=== PATIENT | female | born 1950 | race Caucasian/White ===

== ENCOUNTER 2024-06-07 11:59 | Emergency (ER) | payer MEDICARE, OTHER, SELFPAY ==
[2024-06-07] VITALS (9 sets, daily range): BP systolic 123–138; BP diastolic 58–89; PULSE 56–64; RESP 16–24; TEMP 36.2; O2SAT 94–97; BMI 32.5
--- NOTE | 2024-06-07 12:04 | DI.RAD.S_ITS ---
PROCEDURE: XR CHEST 1V INDICATIONS: chest pain TECHNIQUE: One view of the chest was acquired. COMPARISON: None. FINDINGS: Surgical changes and devices: None. Lungs and pleura: Lungs are clear. No pleural effusions or pneumothorax. Mediastinum: Mediastinal contours appear normal. Heart size is normal. Bones and chest wall: No suspicious bony lesions. Overlying soft tissues appear unremarkable. IMPRESSION: No acute cardiopulmonary pathology. Dictated by: Byron Rodrigues M.D. on 06/07/2024 at 13:10 Approved by: Byron Rodrigues M.D. on 06/07/2024 at 13:11
--- NOTE | 2024-06-07 12:15 | EKG_ITS ---
[address] [address] Test Date: 2024-06-07 Pat Name: Elizabeth Loepz Department: [facility] Room: Gender: Female [employer] Machine Operator: JUAN CARLOS : 1950 Requested By: Order Number: [id number] Reading MD: Jose L Swann Measurements Intervals [place] Rate: 59 P: 14 MD: 190 QRS: 6 QRSD: 84 T: 23 QT: 422 QTc: 417 Interpretive Statements Sinus bradycardia Electronically Signed On 06-09-2024 18:26:20 PDT by Jose L Swann
[2024-06-07 12:43] LABS: Add Manual Diff / Slide Review NO; Basophils Absolute Auto 0 /uL (0-100); Basophils Percent Auto 0.9 % (0-2); Eosinophils Absolute Auto 200 /uL (0-450); Eosinophils Percent Auto 4.5 % (2-4); Hematocrit 38.8 % (36-46); Hemoglobin 13.1 g/dL (12.0-16.0); Lymphocytes Absolute Auto 2100 /uL (1100-4500); Lymphocytes Percent Auto 41.4 % (25-40); Mean Corpuscular HGB Conc 33.6 % (30-36); Mean Corpuscular Hemoglobin 30.2 PG (26-34); Mean Corpuscular Volume 89.8 fL (80-100); Monocytes Absolute Auto 400 /uL (0-900); Monocytes Percent Auto 8.3 % (3-14); Neutrophils Absolute Auto 2300 /uL (1500-7000); Neutrophils Percent Auto 44.9 % (50-75); Platelet Count 149 X10^3/uL (150-400); Red Blood Cell Count 4.32 X10^6/uL (4.0-5.2); White Blood Cell Count 5.1 X10^3/uL (4.5-11.0)
[2024-06-07 12:48] LABS: INR 0.9 (0.9-1.3); Prothrombin Time 10.4 SECONDS (9.4-12.5)
[2024-06-07 12:51] LABS: PTT Partial Thromboplastin Tim 37 SECONDS (25.1-36.5)
[2024-06-07 12:53] LABS: Alanine Aminotransferase 44 IU/L (<35); Albumin 3.9 g/dL (3.5-5.0); Albumin Globulin Ratio 1.6 (1.0-2.8); Alkaline Phosphatase 76 U/L (38-126); Aspartate Aminotransferase 50 IU/L (14-36); BUN Creatinine Ratio 14.3 (6-22); Bilirubin Total 0.5 mg/dL (0.2-1.3); Blood Urea Nitrogen 11 mg/dL (7-17); Calcium 8.9 mg/dL (8.4-10.2); Carbon Dioxide 25 mmol/L (22-32); Chloride 108 mmol/L (98-107); Creatine Kinase 87 U/L (30-135); Estimated Glomerular Filt Rate > 60 mL/min (>60); Globulin 2.4 g/dL (1.7-4.1); Glucose 110 mg/dL (80-110); HEMOLYSIS 18 (0-50); Lipase 54 U/L (23-300); Magnesium 2.2 mg/dL (1.6-2.3); Potassium 4.3 mmol/L (3.4-5.1); Sodium 138 mmol/L (137-145); Total Protein 6.3 g/dL (6.3-8.2)
[2024-06-07 13:04] LABS: NT-proBNP (BNP-Adult 18+) 36 pg/mL (<450); Troponin I < 0.012 ng/mL (0.01-0.034)
--- NOTE | 2024-06-07 14:23 | ED_ITS ---
HPI - Chest Pain General Chief Complaint: Chest Pain Stated Complaint: palpitations, hx of heart attack Time Seen by Provider: 06/07/24 14:19 Source: patient, RN notes reviewed and old records reviewed Mode of arrival: Ambulatory Limitations: no limitations History of Present Illness HPI narrative: 73-year-old female history of coronary artery disease with prior stent, hypertension dyslipidemia, restless leg on aspirin daily who presents with complaint of sensation of palpitations overnight at 3:00 a.m.. Patient states this made her feel anxious as last time she would palpitations following day she had chest pain and then had a cardiac stent placed after having a myocardial infarction. Patient states she has not having any chest pain similar to that. She states she does hurt everywhere from her head to her toes, she hurts in her chest but when she coughs or sneezes or moves. She states it feels very different than her prior heart attack. Patient states she is moving and has been packing and packing a lot of objects making her very sore. She states she probably feels short of breath, she denies any diaphoresis no cold cough or congestion she has noted a little bit of phlegm. No fevers or chills. No nausea or vomiting. No swelling in her extremities. Patient states has not had any additional palpitations. She is on lisinopril, statin, allopurinol aspirin daily as well as Tylenol PRN for discomfort. She has had prior cardiac stent and tonsillectomy. No known drug allergies. No tobacco, alcohol or recreational drugs. She is recently moved to the area she is follow up next month with [facility] but is interested in establishing with a more local group. She has a primary care appointment on the to establish locally. She is accompanied by her family. Related Data Allergies Allergy/AdvReac Type Severity Reaction Status Date / Time No Known Drug Allergies Allergy Verified 06/07/24 13:23 Review of Systems Review of Systems ROS Unobtainable: All systems reviewed & are unremarkable except as noted in HPI and below Exam Narrative Exam Narrative: GENERAL: Alert and oriented x three, elderly female in mild distress HEENT: Head normocephalic, atraumatic, EOMI, pupils reactive, face symmetric, moist mucous membranes NECK: Supple, full range of motion CARDIOVASCULAR: Regular rate and rhythm without murmurs, rubs or gallops. No JVD. No edema. Reproducible chest pain with palpation. RESPIRATORY: Breath sounds equal bilaterally, no wheezes rales or rhonchi. ABDOMEN: Soft, nontender. Normoactive bowel sounds all 4 quadrants. No guarding or rebound, rigidity, no mass : No CVA tenderness EXTREMITIES: Normal range of motion, no clubbing or edema. Neurovascularly intact NEUROLOGICAL: Cranial nerves II through XII grossly intact. Moving all extremities SKIN: Warm, dry, no petechiae, no rashes or lesions. Initial Vital Signs Initial Vital Signs: Vital Signs Temperature 97.1 F L 06/07/24 12:04 Pulse Rate 64 06/07/24 12:04 Respiratory Rate 16 06/07/24 12:04 Blood Pressure 131/89 06/07/24 12:04 Pulse Oximetry 97 06/07/24 12:04 Oxygen Delivery Method Room Air 06/07/24 12:04 Course Orders Ordered: ED Orders 06/07/24 12:04 XR chest 1V Stat EKG-12 Lead Stat 06/07/24 12:27 Complete Blood Count AUTO DIFF Stat Comprehensive Metabolic Panel Stat Lipase Stat Magnesium Stat NT-proBNP (BNP-Adult 18+) Stat PTT Partial Thromboplastin Jose Stat Prothrombin Time INR Stat Troponin & CK Cardiac Panel Stat Discontinued Medications Aspirin (Aspirin 81 Mg Chew Tab) 324 mg PO NOW ONE Stop: 06/07/24 12:05 Last Admin: 06/07/24 13:23 Dose: Not Given Documented By: AMV Vital Signs Vital signs: Vital Signs - 8 hr 06/07/24 12:04 06/07/24 12:13 06/07/24 12:13 Temperature 97.1 F L Pulse Rate 64 62 Respiratory Rate 16 Blood Pressure 131/89 137/63 Pulse Oximetry 97 95 Oxygen Delivery Method Room Air 06/07/24 12:30 06/07/24 13:00 06/07/24 13:00 Temperature Pulse Rate 60 56 L Respiratory Rate 20 Blood Pressure 126/58 L Pulse Oximetry 96 95 Oxygen Delivery Method 06/07/24 13:30 06/07/24 13:30 06/07/24 14:00 Temperature Pulse Rate 57 L 58 L Respiratory Rate 24 Blood Pressure 123/58 L Pulse Oximetry 96 96 Oxygen Delivery Method 06/07/24 14:00 06/07/24 14:30 06/07/24 14:30 Temperature Pulse Rate 58 L Respiratory Rate Blood Pressure 138/60 124/73 Pulse Oximetry 94 Oxygen Delivery Method Room Air 06/07/24 15:00 06/07/24 15:01 06/07/24 15:01 Temperature Pulse Rate 56 L 61 Respiratory Rate Blood Pressure 131/73 Pulse Oximetry 96 96 Oxygen Delivery Method MDM - Chest Pain Lab Data 06/07/24 12:27 06/07/24 12:27 Labs: Lab Results 06/07/24 Range/Units 12:27 WBC 5.1 (4.5-11.0) X10^3/uL RBC 4.32 (4.0-5.2) X10^6/uL Hgb 13.1 (12.0-16.0) g/dL Hct 38.8 (36-46) % MCV 89.8 (80-100) fL MCH 30.2 (26-34) PG MCHC 33.6 (30-36) % RDW 13.0 (11.6-14.8) % Plt Count 149 L (150-400) X10^3/uL Neut % (Auto) 44.9 L (50-75) % Lymph % (Auto) 41.4 H (25-40) % [place] % (Auto) 8.3 (3-14) % Eos % (Auto) 4.5 H (2-4) % Baso % (Auto) 0.9 (0-2) % Neut # (Auto) 2300 (5874-5071) /uL Lymph # (Auto) 2100 (8288-0071) /uL [place] # (Auto) 400 (0-900) /uL Eos # (Auto) 200 (0-450) /uL Baso # (Auto) 0 (0-100) /uL PT 10.4 (9.4-12.5) SECONDS INR 0.9 (0.9-1.3) APTT 37 H (25.1-36.5) SECONDS Sodium 138 (137-145) mmol/L Potassium 4.3 (3.4-5.1) mmol/L Chloride 108 H (98-107) mmol/L Carbon Dioxide 25 (22-32) mmol/L BUN 11 (7-17) mg/dL Creatinine 0.77 (0.52-1.04) mg/dL Estimated GFR > 60 (>60) mL/min BUN/Creatinine Ratio 14.3 (6-22) Glucose 110 (80-110) mg/dL Calcium 8.9 (8.4-10.2) mg/dL Magnesium 2.2 (1.6-2.3) mg/dL Total Bilirubin 0.5 (0.2-1.3) mg/dL AST 50 H (14-36) IU/L ALT 44 H (<35) IU/L Alkaline Phosphatase 76 (38-126) U/L Total Creatine Kinase 87 (30-135) U/L Troponin I < 0.012 (0.01-0.034) ng/mL NT-Pro-B Natriuret Pep 36 (<450) pg/mL Total Protein 6.3 (6.3-8.2) g/dL Albumin 3.9 (3.5-5.0) g/dL Globulin 2.4 (1.7-4.1) g/dL Albumin/Globulin Ratio 1.6 (1.0-2.8) Lipase 54 (23-300) U/L ECG Data Attestation: I personally reviewed and interpreted this ECG as follows: Prior ECG tracings: not available for review Interpretation: Sinus bradycardia rate of 59 HI 190 QRS 84 QTC of [address] changes appreciated patient has no priors for comparison. MDM Narrative Medical decision making narrative: 73-year-old female with history of coronary artery disease who presents with a complaint of palpitations early this morning no additional episodes she has been sinus bradycardic but no acute rhythm changes otherwise. She felt anxious his last time she had significant chest pain the following day and then ultimately had an [facility] and a cardiac stent. She has not had chest pain today other than discomfort with movement that she has throughout her body while she has been moving for the past week. Patient and I discussed repeating 2nd troponin but she defers and her symptoms seem very much musculoskeletal today although her palpitations may has been an arrhythmia. She has follow up in place with her product inspection coordinator. Show white count of 5.1 hemoglobin of 13 platelets of 149 no priors for comparison predominance of lymphocytes. INR 0.9 chloride 108 sodium is 138 potassium 4.3 creatinine 0.77 with a BUN 11 CO2 of 25, AST is 50 ALT is 44 LFTs are otherwise negative troponins less than 0.012 with a BNP of 36. Chest x-ray shows no acute change EKG shows sinus bradycardia, no acute ST elevation appreciated. No priors for comparison. Discharge Plan Departure Patient Disposition: Home Clinical Impression: Palpitations Instructions: DI for Palpitations Activity Restrictions/Additional Instructions: Follow up with your product inspection coordinator. Contacts included below so you can establish with a more local product inspection coordinator. To let them know that he had a sensation of palpitations if this is recurrent they may wish to order a Holter monitor or ZIO patch for further monitoring. Continue your home medications as prescribed. Please return for new or worsening chest pain, shortness of breath, lightheadedness or passing out, persistent palpitations or irregular heartbeat, new swelling of extremities, diaphoresis or sweatiness or nausea or vomiting or other new or concerning changes. Referrals: Uday Torres MD [Physician] - Kirill Steel MD [Physician] - Stand Alone Forms: Patient Portal/API
== END 2024-06-07 15:15 | disposition home or self-care (01) ==
PROVIDERS: Emergency Provider Emergency Medicine
DX: R00.2 Palpitations (principal); R00.1 Bradycardia, unspecified; I25.2 Old myocardial infarction; Z95.5 Presence of coronary angioplasty implant and graft
CPT/HCPCS: 36415; 71045; 80053; 82550; 83690; 83735; 83880; 84484; 85025; 85610; 85730; 93005; 99283; 99284

== ENCOUNTER → 2024-06-25 14:07 | Outpatient (CLI) | payer MEDICARE, OTHER, SELFPAY ==
--- NOTE | 2024-06-25 14:09 | DI.RAD.S_ITS ---
PROCEDURE: XR LUMBAR SPINE 2-3V INDICATIONS: eval back fractures TECHNIQUE: 3 views of the lumbar spine were acquired. COMPARISON: [facility], CR, XR CHEST 1V, 06/07/2024, 12:25. [facility], CR, XR THORACIC SPINE 3V, 06/25/2024, 14:12. FINDINGS: Bones: 5 [id number] vertebrae are present. There is normal bony alignment mild compression fracture at the T12 level of indeterminate age. No retropulsed fracture fragments. Multilevel disc degeneration and lower lumbar spine facet joint arthropathy. Bones are osteopenic.. No suspicious bony lesions. Soft tissues: Overlying bowel gas pattern is normal. No suspicious soft tissue calcifications. Vascular calcifications indicate atherosclerosis. IMPRESSION: 1. T12 compression fracture of indeterminate age. If acute fracture is suspected, MRI could be performed for further assessment. 2. Multilevel lumbar spine spondylosis. Dictated by: Theron Marsh RRA Interpreted: Radha Watson MD on 06/26/2024 at 18:56 Transcribed by: GABRIELA on 06/26/2024 at 18:57 Approved by: Radha Watson M.D. on 06/27/2024 at 16:44
--- NOTE | 2024-06-25 14:09 | DI.RAD.S_ITS ---
PROCEDURE: XR THORACIC SPINE 3V INDICATIONS: eval back fractures TECHNIQUE: 3 views of the thoracic spine were acquired. COMPARISON: [facility], CR, XR LUMBAR SPINE 2-3V, 06/25/2024, 14:12. FINDINGS: Bones: Mild T12 compression fracture of indeterminate age. Mild multilevel disc degeneration. No suspicious bony lesions. 12 pairs of ribs are noted, and appear intact where visualized. Soft tissues: No paravertebral stripe thickening. IMPRESSION: Mild T12 compression fracture of indeterminate age. If acute fracture is suspected, MRI could be performed. Dictated by: Theron Marsh [facility] Interpreted: Radha Watson MD on 06/26/2024 at 18:58 Transcribed by: GABRIELA on 06/26/2024 at 18:59 Approved by: Radha Watson M.D. on 06/27/2024 at 16:45
== END ==
PROVIDERS: PCP Family Medicine; Referring Provider Family Medicine; Visit Provider Family Medicine
DX: S22.080A Wedge compression fracture of T11-T12 vertebra, initial encounter for closed fracture (principal); S32.020A Wedge compression fracture of second lumbar vertebra, initial encounter for closed fracture; M47.816 Spondylosis without myelopathy or radiculopathy, lumbar region; M51.34 Other intervertebral disc degeneration, thoracic region; M54.9 Dorsalgia, unspecified
CPT/HCPCS: 72072; 72100

== ENCOUNTER → 2024-07-10 15:03 | Outpatient (CLI) | payer MEDICARE, OTHER, SELFPAY ==
--- NOTE | 2024-07-10 | DI.MRI.S_ITS ---
PROCEDURE: MR LUMBAR SPINE WO CON INDICATIONS: LUMBAR STENOSIS TECHNIQUE: Noncontrast sagittal T1 spin echo and T2 fast echo, sagittal STIR, and T2 fast spin echo through the lumbar spine. In cases with scoliosis, additional coronal T2 fast spin echo may be performed. COMPARISON: None. FINDINGS: Image quality: Excellent. Alignment and Curvature: Mild retrolisthesis of L1 on L2 and L2 on L3. Grade 1 anterolisthesis of L4 on L5. Bone Marrow: Degenerative endplate changes, most pronounced at L2-L3. Marrow is of normal overall signal. No acute vertebral body compression fractures. Mild chronic anterior wedging of T11. Spinal Cord: Conus medullaris terminates at the L1 level. Visualized cord demonstrates normal signal and size. Paraspinous Soft Tissues: No paravertebral masses. T12-L1: Disc desiccation and small disc bulge. Facet arthropathy. No significant central canal or neural foraminal stenosis. L1-L2: Disc desiccation and mild height loss. Posterior disc bulge. Facet arthropathy and thickening of ligamentum flavum. Mild to moderate central canal stenosis. Mild bilateral neural foraminal stenosis. L2-L3: Disc desiccation and moderate disc height loss. Facet arthropathy and thickening of ligamentum flavum. Epidural lipomatosis. Moderate central canal stenosis. Moderate left and mild right neural foraminal stenosis. L3-L4: Disc desiccation and mild height loss. Diffuse disc bulge. Facet arthropathy and thickening of ligamentum flavum. Mild to moderate central canal stenosis. Mild bilateral neural foraminal stenosis. L4-L5: Disc desiccation and mild height loss. Diffuse disc bulge. Facet arthropathy and thickening of ligamentum flavum. Moderate to severe central canal stenosis. [id number] bilateral neural foraminal stenosis. L5-S1: Disc desiccation and moderate height loss. Mild disc bulge. Facet arthropathy. No significant central canal stenosis. Severe left and moderate right neural foraminal stenosis. IMPRESSION: 1. Multilevel degenerative changes of the lumbar spine as described above. 2. Moderate to severe central canal stenosis at L4-5. 3. Severe left neural foraminal stenosis at L5-S1. Additional multilevel neural foraminal stenosis as above. Dictated by: Boo Alcantar M.D. on 07/10/2024 at 17:28 Approved by: Boo Alcantar M.D. on 07/10/2024 at 17:38
== END ==
PROVIDERS: PCP Family Medicine; Referring Provider Orthopaedic Surgery Orthopaedic Surgery of the Spine; Visit Provider Orthopaedic Surgery Orthopaedic Surgery of the Spine
DX: M48.062 Spinal stenosis, lumbar region with neurogenic claudication (principal); M48.07 Spinal stenosis, lumbosacral region; M47.816 Spondylosis without myelopathy or radiculopathy, lumbar region; M47.817 Spondylosis without myelopathy or radiculopathy, lumbosacral region
CPT/HCPCS: 72148

== ENCOUNTER 2025-05-02 10:49 | Emergency (ER) | payer MEDICARE, OTHER, SELFPAY ==
[2025-05-02 11:20] VITALS: BP 153/67; PULSE 53; RESP 18; TEMP 36.9; O2SAT 97; BMI 27.4
--- NOTE | 2025-05-02 11:27 | DI.CT.S_ITS ---
PROCEDURE: CT CERVICAL SPINE WO CON INDICATIONS: fall/hit head TECHNIQUE: Noncontrast 3 mm thick sections acquired from the skull base to the T4 level. Sagittal and coronal reformats were then constructed. For radiation dose reduction, the following was used: automated exposure control, adjustment of mA and/or kV according to patient size. COMPARISON: [facility], CT, CT HEAD/BRAIN WO CON, 05/02/2025, 11:40. FINDINGS: Image quality: Excellent. Bones: No fractures or dislocations. Visualized superior ribs are intact. Soft tissues: Prevertebral soft tissues are normal in thickness. No paravertebral hematomas. No apical pneumothoraces. IMPRESSION: No displaced fracture or traumatic subluxation. Dictated by: Gato Lazaro M.D. on 05/02/2025 at 12:04 Approved by: Gato Lazaro M.D. on 05/02/2025 at 12:05
--- NOTE | 2025-05-02 11:27 | DI.CT.S_ITS ---
PROCEDURE: CT HEAD/BRAIN WO CON INDICATIONS: fall/hit head/no thinners TECHNIQUE: Noncontrast 4.5 mm thick angled axial sections acquired from the foramen magnum to the vertex, with coronal and sagittal reformats. For radiation dose reduction, the following was used: automated exposure control, adjustment of mA and/or kV according to patient size. COMPARISON: None. FINDINGS: Image quality: Diagnostic. CSF spaces: Basal cisterns are patent. No extra-axial fluid collections. The ventricles are symmetric in size and shape. Brain: No intracranial bleeds or mass effect. There is cerebral volume loss, with resultant ventricular and sulcal prominence. There are periventricular and deep white matter chronic small vessel ischemic changes. There is intracranial internal carotid artery atherosclerosis. Skull and face: Calvarium and visualized facial bones appear intact, without suspicious lesions. Sinuses: Visualized sinuses and mastoids are clear. IMPRESSION: No acute intracranial pathology. Dictated by: Gato Lazaro M.D. on 05/02/2025 at 12:03 Approved by: Gato Lazaro M.D. on 05/02/2025 at 12:04
--- NOTE | 2025-05-02 11:27 | DI.RAD.S_ITS ---
PROCEDURE: XR WRIST RT MIN 3V INDICATIONS: fall/hit head TECHNIQUE: 4 views of the wrist were acquired. COMPARISON: None. FINDINGS: Bones: No fractures or dislocations. Mild degenerative arthritis involving the 1st carpometacarpal joint and triscaphe joint. No suspicious bony lesions. Soft tissues: No suspicious soft tissue calcifications. IMPRESSION: No acute bony abnormality. Mild degenerative arthritis. Dictated by: Adam Whiting M.D. on 05/02/2025 at 12:22 Approved by: Adam Whiting M.D. on 05/02/2025 at 12:23
--- NOTE | 2025-05-02 12:12 | ED.FALL ---
HPI - Fall <Andrez Muñoz PA-C - Last Filed: 05/02/25 12:38> General Chief Complaint: Fall Stated Complaint: Right wrist pain , Fell last night Time Seen by Provider: 05/02/25 11:37 Source: patient Mode of arrival: Ambulatory History of Present Illness HPI Narrative: This is a 74-year-old female presents emergency department due to mechanical ground level fall last night where she slipped over pad in her house. She fell landing on her right wrist as well as right cheek. She was not lose conscious. She was not reporting any headaches, numbness, slurred speech, weakness, neck pain, or pain to any other part of her body other than her right wrist. She takes aspirin 81 mg daily. She was reporting only very mild right cheek pain and states ?it was not broken Related Data Home Medications ?Medication ?Instructions ?Recorded ?Confirmed acetaminophen 650 mg 650 mg PO Q12H 06/25/24 10/23/24 tablet,extended release (Tylenol 8 Hour) amoxicillin 500 mg capsule 500 mg PO QID 06/25/24 10/23/24 carvedilol 6.25 mg tablet 6.25 mg PO BID 06/25/24 10/23/24 citalopram 20 mg tablet 20 mg PO DAILY 06/25/24 10/23/24 ezetimibe 10 mg tablet 10 mg PO DAILY 06/25/24 10/23/24 lisinopril 10 mg tablet 10 mg PO DAILY 06/25/24 10/23/24 omeprazole 40 mg capsule,delayed 40 mg PO DAILY 06/25/24 10/23/24 release quetiapine 100 mg tablet 100 mg PO DAILY 06/25/24 10/23/24 ropinirole 4 mg tablet 4 mg PO BEDTIME 06/25/24 10/23/24 rosuvastatin 40 mg tablet 40 mg PO DAILY 06/25/24 10/23/24 Previous Rx's ?Medication ?Instructions ?Recorded meloxicam 15 mg tablet 15 mg PO DAILY #30 tabs 10/23/24 Allergies Allergy/AdvReac Type Severity Reaction Status Date / Time No Known Drug Allergies Allergy Verified 10/23/24 15:46 Review of Systems <Andrez Muñoz PA-C - Last Filed: 05/02/25 12:38> Review of Systems Narrative: GENERAL: Denies chills, fatigue, malaise, fever, sweats. HEENT: Denies sinus pain, ear pain, sore throat, difficulty swallowing, dizziness. RESPIRATORY: Denies dyspnea, cough, wheezing, hemoptysis, sputum. CARDIOVASCULAR: Denies chest pain, palpitations, orthopnea, edema, GASTROINTESTINAL: Denies nausea, vomiting, abdominal pain, diarrhea, constipation, melena. : Denies dysuria, frequency, incontinence, hematuria, urinary retention. MUSCULOSKELETAL: denies weakness, joint pain, or bony pain. Reports right wrist and right cheek pain SKIN: Denies rash, skin lesions, or other NEUROLOGIC: Denies weakness, headache, numbness, change in speech, confusion, seizures, incoordination. PSYCHIATRIC: No concerning psychosocial issues. 12 point review of systems is negative except for those stated above Patient History <Andrez Muñoz PA-C - Last Filed: 05/02/25 12:38> Medical History Lumbar foraminal stenosis Sleep apnea Barretts esophagus Hyperlipidemia History of depression History of pelvic fracture History of myocardial infarction CAD (coronary artery disease) Social History Smoking Status: Never smoker Smoking Status: Never smoker Exam <Andrez Muñoz PA-C - Last Filed: 05/02/25 12:38> Narrative Exam Narrative: GENERAL: Well-developed patient, in mild distress. HEAD: Atraumatic. Normocephalic. Very mild tenderness to palpation to the right maxillary area. No ecchymosis or crepitus. EYES: Pupils equal round and reactive. Extraocular motions intact. No scleral icterus. No injection or drainage. ENT: Nose without bleeding, purulent drainage. Throat without erythema, tonsillar hypertrophy or exudate. Airway patent. NECK: Trachea midline. Non tender EXTREMITIES: Mild tenderness to palpation to the right distal radius, neurovascularly intact throughout. NEURO: AOx3. Cranial nerves 2-12 intact SKIN: No rash or erythema of visible areas Initial Vital Signs Initial Vital Signs: Vital Signs Temperature 98.5 F 05/02/25 11:20 Pulse Rate 53 L 05/02/25 11:20 Respiratory Rate 18 05/02/25 11:20 Blood Pressure 153/67 H 05/02/25 11:20 Pulse Oximetry 97 05/02/25 11:20 Oxygen Delivery Method Room Air 05/02/25 11:20 <Corinna Reed MD - Last Filed: 05/03/25 08:27> Initial Vital Signs Initial Vital Signs: Vital Signs Temperature 98.5 F 05/02/25 11:20 Pulse Rate 53 L 05/02/25 11:20 Respiratory Rate 18 05/02/25 11:20 Blood Pressure 153/67 H 05/02/25 11:20 Pulse Oximetry 97 05/02/25 11:20 Oxygen Delivery Method Room Air 05/02/25 11:20 Course <Andrez Muñoz PA-C - Last Filed: 05/02/25 12:38> Orders Ordered: ED Orders 05/02/25 11:27 CT cervical spine wo con Stat CT head/brain wo con Stat XR wrist RT min 3V Stat Vital Signs Vital signs: Vital Signs - 8 hr 05/02/25 11:20 05/02/25 12:34 Temperature 98.5 F 98 F Pulse Rate 53 L 60 Respiratory Rate 18 18 Blood Pressure 153/67 H 127/60 Pulse Oximetry 97 97 Oxygen Delivery Method Room Air Room Air <Corinna Reed MD - Last Filed: 05/03/25 08:27> Orders Ordered: ED Orders 05/02/25 11:27 CT cervical spine wo con Stat CT head/brain wo con Stat XR wrist RT min 3V Stat Vital Signs Vital signs: Vital Signs - 8 hr 05/02/25 11:20 05/02/25 12:34 Temperature 98.5 F 98 F Pulse Rate 53 L 60 Respiratory Rate 18 18 Blood Pressure 153/67 H 127/60 Pulse Oximetry 97 97 Oxygen Delivery Method Room Air Room Air MDM - Fall <Andrez Muñoz PA-C - Last Filed: 05/02/25 12:38> Imaging Data CT scan - head: Radiologist's Impression: [address] [address] [address] Scan Report Signed Patient: Eilzabeth Lopez MR#: [id number] : 1950 Acct:[id number] Age/Sex: 74 / F Date of Service: 05/02/25 Loc: ED Accession Number: [id number] Procedure: CT head/brain wo con Ordering Provider: Corinna Reed MD PROCEDURE: CT HEAD/BRAIN WO CON INDICATIONS: fall/hit head/no thinners TECHNIQUE: Noncontrast 4.5 mm thick angled axial sections acquired from the foramen magnum to the vertex, with coronal and sagittal reformats. For radiation dose reduction, the following was used: automated exposure control, adjustment of mA and/or kV according to patient size. COMPARISON: None. FINDINGS: Image quality: Diagnostic. CSF spaces: Basal cisterns are patent. No extra-axial fluid collections. The ventricles are symmetric in size and shape. Brain: No intracranial bleeds or mass effect. There is cerebral volume loss, with resultant ventricular and sulcal prominence. There are periventricular and deep white matter chronic small vessel ischemic changes. There is intracranial internal carotid artery atherosclerosis. Skull and face: Calvarium and visualized facial bones appear intact, without suspicious lesions. Sinuses: Visualized sinuses and mastoids are clear. IMPRESSION: No acute intracranial pathology. Dictated by: Gato Lazaro M.D. on 05/02/2025 at 12:03 Approved by: Gato Lazaro M.D. on 05/02/2025 at 12:04 CT - cervical spine: Radiologist's Impression: [place] [address] CT Scan Report Signed Patient: Elizabeth Lopez MR#: [id number] : 1950 Acct:[id number] Age/Sex: 74 / F Date of Service: 05/02/25 Loc: Accession Number: [id number] Procedure: CT cervical spine wo con Ordering Provider: Corinna Reed MD PROCEDURE: CT CERVICAL SPINE WO CON INDICATIONS: fall/hit head TECHNIQUE: Noncontrast 3 mm thick sections acquired from the skull base to the T4 level. Sagittal and coronal reformats were then constructed. For radiation dose reduction, the following was used: automated exposure control, adjustment of mA and/or kV according to patient size. COMPARISON: [facility], CT, CT HEAD/BRAIN WO CON, 05/02/2025, 11:40. FINDINGS: Image quality: Excellent. Bones: No fractures or dislocations. Visualized superior ribs are intact. Soft tissues: Prevertebral soft tissues are normal in thickness. No paravertebral hematomas. No apical pneumothoraces. IMPRESSION: No displaced fracture or traumatic subluxation. Dictated by: Gato Lazaro M.D. on 05/02/2025 at 12:04 Approved by: Gato Lazaro M.D. on 05/02/2025 at 12:05 Extremity x-ray #1: Radiologist's Impression: [address] [address] XRay Report Signed Patient: Elizabeth Lopez MR#: [id number] : 1950 Acct:[id number] Age/Sex: 74 / F Date of Service: 05/02/25 Loc: ED Accession Number: [id number] Procedure: XR wrist RT min 3V Ordering Provider: Corinna Reed MD PROCEDURE: XR WRIST RT MIN 3V INDICATIONS: fall/hit head TECHNIQUE: 4 views of the wrist were acquired. COMPARISON: None. FINDINGS: Bones: No fractures or dislocations. Mild degenerative arthritis involving the 1st carpometacarpal joint and triscaphe joint. No suspicious bony lesions. Soft tissues: No suspicious soft tissue calcifications. IMPRESSION: No acute bony abnormality. Mild degenerative arthritis. Dictated by: Adam Whiting M.D. on 05/02/2025 at 12:22 Approved by: Adam Whiting M.D. on 05/02/2025 at 12:23 MDM Narrative Medical decision making narrative: ED course: This is a 74-year-old female presenting to the emergency department after a mechanical ground level fall last night. CT head and neck ordered during triage and unremarkable. She is on 81 mg aspirin daily. Patient was very reassuring neuro exam and exam other than some mild tenderness to palpation to the right distal radius. X-ray negative. Recommended supportive care. Patient was exhibiting some very very mild tenderness to palpation to the right maxillary area. Shared decision-making utilized and no CT face will be ordered. CC: Wrist pain Complicating co-morbidities: None Data collected from: Previous notes Medical records reviewed: Patient was seen here last in the emergency department roughly a year ago due to palpitations. History of coronary artery disease with prior stent, hypertension, on aspirin daily 81 mg. History of CA. History of pelvic fracture. Differential considered, but not limited to: Fracture, intracranial bleed, sprain Exam documented above, pertinent findings include: Reassuring neuro exam, only very mild tenderness to palpation to the right cheek and distal radius Lab Test results independently reviewed as above. Pertinent findings: None obtained Imaging studies independently reviewed: CT head, neck, and wrist x-ray unremarkable Scores Used: None MIPS Elements: None Consultations: None Treatments: None Re-evaluations: None Discussion: Discussed plan with the patient was comfortable with the plan Diagnosis: Wrist sprain Disposition: see below, along with detailed discharge instructions that have been reviewed with patient as well as indications for ED re-evaluation and additional outpatient follow up Discharge Plan Departure Patient Disposition: Home Clinical Impression: Sprain of wrist Qualifiers: Encounter type: initial encounter Laterality: right Wrist sprain location: unspecified location Qualified Code(s): S63.501A - Unspecified sprain of right wrist, initial encounter Activity Restrictions/Additional Instructions: Thank you for coming to the [facility] Emergency Department today. Your workup today was reassuring. X-ray of the wrist was negative for any fractures. We also took a CT scan of your brain and neck and did not show any fractures or any evidence of any brain bleeding. I suspect your symptoms should improve over time. Please return to the emergency department if you develop any slurred speech, facial drooping, dizziness, significant new or worsening pain, or any other concerning signs or symptoms. I hope you feel better soon. Please follow up with your primary care provider within a week if your symptoms continue. If you do not have a primary care provider please contact the [facility] Resource line at [phone]. They will ask some questions about your medical history and help you get set up with a provider in the community. Prescriptions: No Action meloxicam 15 mg tablet 15 mg PO DAILY Qty: 30 1RF carvedilol 6.25 mg tablet 6.25 mg PO BID Rx Instructions: must administer with a meal/food amoxicillin 500 mg capsule 500 mg PO QID Patient Comments: before dental procedure citalopram 20 mg tablet 20 mg PO DAILY lisinopril 10 mg tablet 10 mg PO DAILY ezetimibe 10 mg tablet 10 mg PO DAILY quetiapine 100 mg tablet 100 mg PO DAILY omeprazole 40 mg capsule,delayed release(DR/EC) 40 mg PO DAILY ropinirole 4 mg tablet 4 mg PO BEDTIME Rx Instructions: administer 1-3 hours before bedtime rosuvastatin 40 mg tablet 40 mg PO DAILY acetaminophen [Tylenol 8 Hour] 650 mg tablet extended release 650 mg PO Q12H Referrals: Devon Stuart, DO [Primary Care Provider, Family Practice] Stand Alone Forms: Patient Portal/API ED Sign-out <Corinna Reed MD - Last Filed: 05/03/25 08:27> Cosign ED Attending Cosignature Attestation: I was immediately available in the department for consultation throughout this patient's visit. Corinna Reed MD
[2025-05-02 12:34] VITALS: BP 127/60; PULSE 60; RESP 18; TEMP 36.6; O2SAT 97
== END 2025-05-02 12:41 | disposition home or self-care (01) ==
PROVIDERS: Emergency Provider Physician Assistant Medical; PCP Family Medicine
DX: R51.9 Headache, unspecified (principal); S63.501A Unspecified sprain of right wrist, initial encounter; W01.0XXA Fall on same level from slipping, tripping and stumbling without subsequent striking against object, initial encounter
CPT/HCPCS: 70450; 72125; 73110; 99281; 99284

== ENCOUNTER 2025-10-13 14:54 | Emergency (ER) | payer MEDICARE, OTHER, SELFPAY ==
[2025-10-13 15:01] VITALS: BP 167/73; PULSE 62; RESP 18; TEMP 36.9; O2SAT 95; BMI 27.4
[2025-10-13 15:06] VITALS: BMI 27.4
--- NOTE | 2025-10-13 16:08 | ED.BACK ---
HPI - Back Pain/Injury General Chief Complaint: Back Pain/Injury Stated Complaint: back pain/injury x 5 days Time Seen by Provider: 10/13/25 16:07 Source: patient History of Present Illness HPI Narrative: 74-year-old woman with a history of chronic back pain, prior imaging has been done, orthopedic consultation, surgical intervention was recommended she chose not to do that. She has been using ibuprofen and Tylenol to help with the pain but today pain seems significantly worse. she notes that she did have a slight fall a little over a month ago. Has not been having fevers or chills. She is wearing a back support splint that is helping with the pain. No new radicular symptoms. No abdominal pain, fevers or chills. Related Data Home Medications ?Medication ?Instructions ?Recorded ?Confirmed acetaminophen 650 mg 650 mg PO Q12H 06/25/24 10/23/24 tablet,extended release (Tylenol 8 Hour) amoxicillin 500 mg capsule 500 mg PO QID 06/25/24 10/23/24 carvedilol 6.25 mg tablet 6.25 mg PO BID 06/25/24 10/23/24 citalopram 20 mg tablet 20 mg PO DAILY 06/25/24 10/23/24 ezetimibe 10 mg tablet 10 mg PO DAILY 06/25/24 10/23/24 lisinopril 10 mg tablet 10 mg PO DAILY 06/25/24 10/23/24 omeprazole 40 mg capsule,delayed 40 mg PO DAILY 06/25/24 10/23/24 release quetiapine 100 mg tablet 100 mg PO DAILY 06/25/24 10/23/24 ropinirole 4 mg tablet 4 mg PO BEDTIME 06/25/24 10/23/24 rosuvastatin 40 mg tablet 40 mg PO DAILY 06/25/24 10/23/24 Previous Rx's ?Medication ?Instructions ?Recorded meloxicam 15 mg tablet 15 mg PO DAILY #30 tabs 10/23/24 dexamethasone 4 mg tablet 10 mg (2.5 x 4 mg) PO DAILY #5 tabs 10/13/25 oxycodone 5 mg tablet 5 mg PO Q6H PRN pain #10 tabs 10/13/25 Allergies Allergy/AdvReac Type Severity Reaction Status Date / Time No Known Drug Allergies Allergy Verified 10/13/25 15:06 Review of Systems Review of Systems Narrative: Pertinent positive and negative findings as per HPI Patient History Medical History Lumbar foraminal stenosis Sleep apnea Barretts esophagus Hyperlipidemia History of depression History of pelvic fracture History of myocardial infarction CAD (coronary artery disease) Social History Smoking Status: Never smoker Smoking Status: Never smoker Exam Initial Vital Signs Initial Vital Signs: Vital Signs Temperature 98.4 F 10/13/25 15:01 Pulse Rate 62 10/13/25 15:01 Respiratory Rate 18 10/13/25 15:01 Blood Pressure 167/73 H 10/13/25 15:01 Pulse Oximetry 95 10/13/25 15:01 Oxygen Delivery Method Room Air 10/13/25 15:01 General: Alert appropriate in no acute distress Respiratory: Able to speak in full sentences, no obvious respiratory distress Abdominal: No tenderness to abdominal exam, no flank pain Skin: No obvious rashes, warm and dry Neurologic: Grossly intact no obvious asymmetries or abnormalities, no significant lower extremity weakness spine: Slight tenderness around T12-L1, site of known compression fracture. No redness, warmth, rashes or other areas of point tenderness Psych: appropriate insight and affect, cooperative Course Orders Ordered: ED Orders 10/13/25 16:13 XR lumbar spine 2-3V Stat Discontinued Medications Oxycodone/Acetaminophen (Oxycodone/Acetaminophen 5/325 Tablet) 1 tab PO NOW ONE Stop: 10/13/25 16:14 Last Admin: 10/13/25 16:17 Dose: 1 tab Documented By: BRADLEY Vital Signs Vital signs: Vital Signs - 8 hr 10/13/25 15:01 Temperature 98.4 F Pulse Rate 62 Respiratory Rate 18 Blood Pressure 167/73 H Pulse Oximetry 95 Oxygen Delivery Method Room Air MDM - Back Pain/Injury MDM Narrative Medical decision making narrative: 74-year-old woman with a history of chronic back pain, minimal interactions with the healthcare system primary care physician who complains of worsening acute back pain over the last 5 days without significant obvious temporally related injury. She notes trauma 6 years ago that seemed to cause her compression fracture, she has had imaging studies that were done about a year ago showed a T12 compression fracture with surgical intervention recommended. She notes she did fall a month ago but was not having any pain significantly worsened at that time. She will take occasional ibuprofen and Tylenol. She comes in due to worsening pain today. on exam she has some mild tenderness over T12-L1 without obvious changes otherwise. No abdominal pain flank pain x-rays were done of the lumbar spine that do not show new compression fractures she was given a dose of Percocet which was somewhat helpful in controlling pain. At this point I think this is an acute exacerbation of her chronic back pain. We discussed use of 3 days of steroids to help with inflammation, 3 days of oxycodone for acute pain, continued ibuprofen and Tylenol. She notes she is active and walks regularly I continued to encourage her to do so. I also suggested that find a primary care physician helpful for health care maintenance. Shows no evidence of epidural abscess, is fractures, acute neurologic you may findings that would require advanced imaging or additional workup at this time. She is safely discharged Discharge Plan Departure Patient Disposition: Home Clinical Impression: Acute exacerbation of chronic low back pain Instructions: DI for Low Back Pain Activity Restrictions/Additional Instructions: thank you for coming in today your x-rays do not show any new compression fractures I suspect that you have some additional inflammation at the site of your chronic back pain which is causing the the baseline pain to worsen over these last 5 days sometimes using 3 days of a steroid can be helpful in reducing inflammation. I will give you a couple of Percocet to had this evening and a small prescription of oxycodoneto use over the next couple of days using 400 mg of ibuprofen (2 [id number] pills) and 1 Tylenol every 6 hours can be very helpful in controlling pain. you can add oxycodone to this combination prescriptions were sent to [facility] in [place] * if you do not have a primary care physician, you can contact [facility] resource line at [phone]. They can help get you set up with a physician in our local community If you find that you are getting worse or develop any new symptoms, please feel free to return to the emergency department for further evaluation. Prescriptions: New dexamethasone 4 mg tablet 10 mg PO DAILY Qty: 5 0RF oxycodone 5 mg tablet 5 mg PO Q6H PRN (Reason: pain) Qty: 10 0RF No Action meloxicam 15 mg tablet 15 mg PO DAILY Qty: 30 1RF carvedilol 6.25 mg tablet 6.25 mg PO BID Rx Instructions: must administer with a meal/food amoxicillin 500 mg capsule 500 mg PO QID Patient Comments: before dental procedure citalopram 20 mg tablet 20 mg PO DAILY lisinopril 10 mg tablet 10 mg PO DAILY ezetimibe 10 mg tablet 10 mg PO DAILY quetiapine 100 mg tablet 100 mg PO DAILY omeprazole 40 mg capsule,delayed release(DR/EC) 40 mg PO DAILY ropinirole 4 mg tablet 4 mg PO BEDTIME Rx Instructions: administer 1-3 hours before bedtime rosuvastatin 40 mg tablet 40 mg PO DAILY acetaminophen [Tylenol 8 Hour] 650 mg tablet extended release 650 mg PO Q12H Referrals: Devon Stuart DO [Primary Care Provider, Family Practice] Stand Alone Forms: Patient Portal/API
--- NOTE | 2025-10-13 16:13 | DI.RAD.S_ITS ---
PROCEDURE: XR LUMBAR SPINE 2-3V INDICATIONS: L1/T12 midline pain, ? new compression fx TECHNIQUE: 3 views of the lumbar spine were acquired. COMPARISON: [facility], , XR LUMBAR SPINE 2-3V, 06/25/2024, 14:12. FINDINGS: Bones: 5 [id number] vertebrae are present. There is normal bony alignment. No vertebral body compression fractures. Chronic T12 anterior vertebral body compression deformity, unchanged from 06/25/2024. No new compression deformity. Multilevel lumbar spondylosis, moderate at L2-3 and L5-S1. Moderate facet arthrosis at the lumbosacral junction. No suspicious bony lesions. Soft tissues: Overlying bowel gas pattern is normal. No suspicious soft tissue calcifications. IMPRESSION: No acute bony abnormality. No new compression deformity as queried. Multilevel spondylosis reaches moderate at L2-3 and L5-S1. Dictated by: Alfredito Conroy M.D. on 10/13/2025 at 15:47 Approved by: Alfredito Conroy M.D. on 10/13/2025 at 15:48
[2025-10-13 17:27] VITALS: BP 156/69; PULSE 67; RESP 20; O2SAT 95
== END 2025-10-13 17:29 | disposition home or self-care (01) ==
PROVIDERS: Emergency Provider Emergency Medicine; PCP Family Medicine
DX: M47.817 Spondylosis without myelopathy or radiculopathy, lumbosacral region (principal)
CPT/HCPCS: 72100; 99283